=== PATIENT | male | born 1965 | race Caucasian/White ===

== ENCOUNTER → 2016-08-15 | Day surgery (SDC) | payer OTHER ==
[~2016-08-15] MED LIST: ACETAMINOPHEN/HYDROcodone 325 MG/5 MG TAB ONE; BUPIVACAINE/EPINEPHRINE 0.25% 50 ML VIAL ONE; KETOROLAC TROMETHAMINE 30 MG/ML (IVP) VIAL IV PUSH ONE; LACTATED RINGER'S 1000 ML INJ 1,000 ML ONE; MIDAZOLAM HCL 2 MG/2 ML VIAL ONE; ONDANSETRON HCL 4 MG/2 ML VIAL IV PUSH ONE; PROPOFOL 200 MG/20 ML AMP IV ONE; ceFAZolin 2 GM PREMIX 50 ML ONE
--- NOTE | 2016-08-15 11:09 | TN ---
cc: BRENDA DIAS M.D. DATE OF SURGERY: 08/15/2016 PREOPERATIVE DIAGNOSIS 1. Right inguinal hernia. 2. Recurrent left inguinal hernia. 3. Umbilical hernia. POSTOPERATIVE DIAGNOSIS 1. Right inguinal hernia. 2. Probable recurrent left inguinal hernia. 3. Umbilical hernia. PROCEDURE 1. Laparoscopic repair bilateral inguinal hernia with mesh. 2. Open repair umbilical hernia. SURGEON Dr. Brenda Dias [employer] SHERINE Mora ANESTHESIA General. INDICATIONS A very pleasant 51-year-old gentleman who has previously had a left inguinal hernia repair and has developed increasing symptoms associated with a right inguinal hernia. He has had prior left inguinal hernia repair and has evidence of a probable recurrence. He has a small incidentally discovered fingertip size umbilical hernia. INTRAOPERATIVE FINDINGS Right indirect inguinal hernia. 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 Small umbilical hernia. This procedure was assisted by my nurse practitioner. The skill set of a nurse practitioner was medically necessary to provide appropriate visualization of important anatomic structures. During the surgical procedure the electrical and instrument technician was at the back table providing appropriate instrumentation while the nurse practitioner was directly assisting me. She was present through the entirety of the case. DESCRIPTION OF PROCEDURE IN DETAIL The patient was identified as Duke Pierson, taken to the operating room and placed in supine position. Sequential compression devices were placed on bilateral lower extremities. Following induction of adequate general anesthesia the patient's lower abdomen was prepped and draped in the usual sterile fashion with Betadine. A timeout procedure was performed. Following completion of the timeout procedure to everyone's satisfaction within the room, a proposed infraumbilical small transverse incision was made with a marking pen. Local anesthetic was infiltrated in and around the umbilicus. The incision was carried out with a scalpel and dissection continued to allow for releasing the umbilical skin off the herniated preperitoneal fatty tissue. The umbilical hernia defect was about a centimeter in size. Attention was turned to identification of the anterior rectus fascia on the right side. This was incised at its medial border and a preperitoneal plane was developed with the surgeon's finger directed towards the pubic symphysis using the surgeon's finger. With the patient in slight Trendelenburg position, the preperitoneal dissecting balloon was placed in the preperitoneal space and under direct laparoscopic view inflated to a total of approximately 35 pumps. This left clear identification of the pubic symphysis, bilateral Danis's ligaments and inferior epigastric vessels. The balloon was desufflated and removed and a structural balloon trocar was placed in the preperitoneal space, its balloon inflated with CO2 insufflation until a level of 11 mmHg ensued. Two infraumbilical 5 mm trocars were placed in the preperitoneal space under direct laparoscopic view after incision of the skin with a scalpel. Attention was turned to the right side. Blunt dissection of the lateral and posterior spermatic cord was performed and attention was turned to the anteromedial surface of the spermatic cord. An obvious indirect inguinal hernia sac was reduced from the inguinal canal to the base of the spermatic cord using blunt graspers. An obvious indirect hernia defect was uncovered. There was no evidence of a femoral hernia defect or a direct hernia defect. A 4 x 6 inch piece of Atrium ProLite mesh was cut with an anterolateral slit placed around the spermatic cord and tacked into position with the ProTack device. Tacks were placed to approximate the anterolateral slit and along the anterior border of Danis's ligament. A 2 x 6 inch piece of mesh was placed across the anterolateral slit and held in position with the ProTack device placing a tack superolaterally, inferomedially and superomedially. This created broad coverage of the hernia defect. Photograph was taken of the completed repair. Attention was turned to the left side. Blunt dissection lateral and posterior to the spermatic cord was performed and there was obvious scarring from a previous hernia repair. Posterolaterally a small spermatic cord lipoma was withdrawn from the inguinal canal and reduced in the preperitoneal space. Adherent peritoneum was reduced from the internal inguinal ring to the base of the spermatic cord using the blunt graspers. A hernia defect was identified and covered as was done on the right side taking a 4 x 6 inch piece of Atrium ProLite mesh with an anterolateral slit placed around the spermatic cord and tacked in position with the ProTack device. A 2 x 6 inch piece of the mesh was placed across the anterolateral slit and held in position with the ProTack device as was done on the right side. Care was taken to avoid tack placement inferolaterally to avoid cutaneous nerve injury. Remaining local anesthetic was placed in preperitoneal space. Trocars were removed under direct visualization. There was no evidence of bleeding from the trocar sites. The peritoneum came over and laid on top of the mesh inferolaterally bilaterally. The preperitoneal space was further desufflated through the infraumbilical port which was then removed. The anterior rectus fascial incision was closed with running 2-0 Vicryl suture. The umbilical hernia defect was closed with interrupted inverted 0 Prolene sutures. The umbilicus was reformed with 2-0 Vicryl sutures. Skin incisions were approximated with 4-0 Monocryl subcuticular sutures. Dressings were applied with Mastisol and half-inch brown Steri-Strips, gauze and Tegaderm. The patient tolerated the procedure without apparent complication. Sponge, needle and instrument counts were correct at the end of the case. MD CARLA Morel/CHARLY /10:41 AM /10:50 AM
== END | disposition home or self-care (01) ==
LOC: ESDC 07:34
PROVIDERS: ATTEND Surgery Trauma Surgery
DX: K40.90 Unilateral inguinal hernia, without obstruction or gangrene, not specified as recurrent (principal); K40.91 Unilateral inguinal hernia, without obstruction or gangrene, recurrent; K42.9 Umbilical hernia without obstruction or gangrene
CPT/HCPCS: 00750; 00830; 49505; 49520; 49585; C1727; C1781; J0690; J1885; J2250; J2405; J3010; J7120